=== PATIENT | male | born 1945 | race Hispanic/Latino ===

== ENCOUNTER → 2024-08-17 | Outpatient (CLI) | payer MEDICARE ==
--- NOTE | 2024-08-17 11:27 | HMCIMG ---
CERV SPINE 2-3VWS HISTORY: Neck pain COMPARISON: None FINDINGS: 3 images of cervical spine were obtained. Disc space narrowing is seen at the C5-6 level. There is straightening of normal lordotic curvature which may be related to muscle spasm or positioning. No loss of vertebral height is seen. No fracture or dislocation is seen. Degenerative changes are seen. IMPRESSION: 1. No fracture is seen.
== END | disposition home or self-care (01) ==
LOC: RAH 10:43
PROVIDERS: ATTEND Radiology Diagnostic Radiology
DX: M47.812 Spondylosis without myelopathy or radiculopathy, cervical region (principal); M48.02 Spinal stenosis, cervical region
CPT/HCPCS: 72040